=== PATIENT | female | born 1975 | race Caucasian/White ===

== ENCOUNTER 2018-03-15 09:20 | Emergency (ER) | payer OTHER ==
[~2018-03-15] VITALS: Ht 160 cm; Wt 97.1 kg
[2018-03-15 09:40] VITALS: BP 135/81
== END 2018-03-15 11:30 | disposition home or self-care (01) ==
LOC: ER 09:20
DX: S16.1XXA Strain of muscle, fascia and tendon at neck level, initial encounter (principal); S46.912A Strain of unspecified muscle, fascia and tendon at shoulder and upper arm level, left arm, initial encounter; I10 Essential (primary) hypertension; Z88.0 Allergy status to penicillin; Z88.2 Allergy status to sulfonamides; V43.52XA Car driver injured in collision with other type car in traffic accident, initial encounter; Y93.89 Activity, other specified; Y99.8 Other external cause status; Y92.410 Unspecified street and highway as the place of occurrence of the external cause
CPT/HCPCS: 70450; 72125; 73030; 74176

== ENCOUNTER 2022-06-09 19:15 | Emergency (ER) | payer OTHER ==
[~2022-06-09] VITALS: Ht 160 cm; Wt 103.0 kg
[2022-06-09 19:30] VITALS: BP 166/100
[2022-06-09 20:40] LABS: Alanine Aminotransferase 24 U/L (13-56); Albumin 3.3 g/dL (3.4-5.0); Amylase 24 U/L (25-115); Anion Gap 8 (5-15); Aspartate Aminotransferase 16 U/L (15-37); BUN/Creatinine Ratio 21.9; Blood Urea Nitrogen 14 mg/dL (7-18); Calcium 8.8 mg/dL (8.5-10.1); Carbon Dioxide 26 mmol/L (21-32); Chloride 104 mmol/L (98-107); GFR African American 129 mL/min; GFR Non-African American 107 mL/min; Glucose 88 mg/dL (74-106); Lipase 141 U/L (73-393); Potassium 3.3 mmol/L (3.5-5.1); Sodium 138 mmol/L (136-145)
[2022-06-09 20:43] LABS: Alkaline Phosphatase 100 U/L (45-117); Bilirubin, Total 0.2 mg/dL (0.2-1.0); Total Protein 7.4 g/dL (6.4-8.2)
[2022-06-09 20:49] LABS: Basophils # (auto) 0.1 10 ^3/uL (0-0.2); Basophils % (auto) 0.8 % (0.0-2.0); Eosinophils # (auto) 0.1 10 ^3/uL (0-0.8); Eosinophils % (auto) 0.8 % (0.0-7.0); Hematocrit 40.9 % (36.0-46.0); Hemoglobin 13.9 g/dL (12.2-16.2); Lymphocytes # (auto) 1.9 10 ^3/uL (0.4-5.4); Mean Corpuscular Hemoglobin 29.6 pg (28.0-32.0); Mean Corpuscular Hgb Conc. 33.9 g/dL (32.0-36.0); Mean Corpuscular Volume 87.3 fL (80.0-100.0); Monocytes # (auto) 0.7 10 ^3/uL (0-1.3); Monocytes % (auto) 6.4 % (0.0-12.0); Neutrophils # (auto) 7.6 10 ^3/uL (1.6-8.6); Nucleated Red Blood Cells % 0.1 %; Red Blood Cells 4.69 10^6/uL (4.0-5.20); White Blood Cell 10.3 10^3/uL (4.4-10.8)
[2022-06-09] MEDS ORDERED: HYDROcodone-ACET 5/325MG TAB PO ONE (21:15)
[2022-06-09] MEDS ORDERED: MAALOX PLUS or MAALOX 30 ML PO ONE (21:15)
[2022-06-09 22:00] LABS: Urine Bacteria NONE SEEN /hpf (None Seen); Urine Blood TRACE /uL (Negative); Urine Mucus FEW (None Seen); Urine Specific Gravity 1.016 (1.001-1.035); Urine WBC 3 /hpf (0 - 5)
== END 2022-06-10 01:10 | disposition home or self-care (01) ==
LOC: ER 19:15
DX: R16.0 Hepatomegaly, not elsewhere classified (principal); R10.2 Pelvic and perineal pain; R10.33 Periumbilical pain; N83.202 Unspecified ovarian cyst, left side; N28.1 Cyst of kidney, acquired; Z88.0 Allergy status to penicillin; Z88.2 Allergy status to sulfonamides; I10 Essential (primary) hypertension
CPT/HCPCS: 36415; 74176; 80053; 81001; 82150; 83605; 83690; 84484; 84702; 85025; 93005

== ENCOUNTER 2024-09-22 01:53 | Emergency (ER) | payer OTHER ==
[~2024-09-22] VITALS: Ht 160 cm; Wt 85.9 kg
--- NOTE | 2024-09-22 02:19 | ED.PDOC ---
History of Present Illness HPI Comments 49-year-old female came to ER for weakness. Patient states she woke up from her sleep with abdominal pain. She went to the bathroom, however she felt like she was about to pass out, so she laid on the floor while she called out to her for help. She started shaking uncontrollably, she felt numb and started having shortness of breath. No fever, nausea or vomiting noted. 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: Denies all [employer]IANS Hx Family History Family History: Unknown Social History Smoker: Non-Smoker Alcohol: Denies ETOH Use Drugs: Denies Drug Use Lives In: Home Constitutional: denies: chills, diaphoresis, fatigue, fever, malaise, sweats, weakness, others EENTM: denies: blurred vision, double vision, ear bleeding, ear discharge, ear drainage, ear pain, ear ringing, eye pain, eye redness, hearing loss, mouth pain, mouth swelling, nasal discharge, nose bleeding, nose congestion, nose pain, photophobia, tearing, throat pain, throat swelling, voice changes, others Respiratory: reports: shortness of breath; denies: cough, hemoptysis, orthopnea, SOB at rest, SOB with excertion, stridor, wheezing, others Cardiovascular: denies: chest pain, dizzy spells, diaphoresis, Dyspnea on exertion, edema, irregular heart beat, left arm pain, lightheadedness, palpitations, PND, syncope, others Gastrointestinal: reports: abdominal pain; denies: abdomen distended, blood streaked bowels, constipated, diarrhea, dysphagia, difficulty swallowing, hematemesis, melena, nausea, poor appetite, poor fluid intake, rectal bleeding, rectal pain, vomiting, others Genitourinary: denies: abnormal vagina bleeding, burning, dyspareunia, dysuria, flank pain, frequency, hematuria, incontinence, pain, , vagina discharge, urgency, others Neurological: reports: fainting, numbness, tremors; denies: dizziness, headache, left sided numbness, left sided weakness, paresthesia, pre-existing deficit, right sided numbness, right sided weakness, seizure, speech problems, tingling, weakness, others Musculoskeletal: denies: back pain, gout, joint pain, joint swelling, muscle pain, muscle stiffness, neck pain, others Integumetry: denies: bruises, change in color, change in hair/nails, dryness, laceration, lesions, lumps, rash, wounds, others Allergic/Immunocompromised: denies: Difficulty Healing, Frequent Infections, Hives, Itching, others Hematologic/Lymphatic: denies: anemia, blood clots, easy bleeding, easy bruising, swollen glands, others Endocrine: denies: excessive hunger, excessive sweating, excessive thirst, excessive urination, flushing, intolerance to cold, intolerance to heat, unexplained weight gain, unexplained weight loss, others Psychiatric: denies: anxiety, bipolar disorder, depression, hopeless, panic disorder, schizophrenia, sleepless, suicidal, others Physical Exam General Appearance: Moderate Distress, Normal HEENT: Normal ENT Inspection, Pharynx Normal, TMs Normal Neck: Full Range of Motion, Non-Tender, Normal, Normal Inspection Respiratory: Chest Non-Tender, Lungs Clear, No Accessory Muscle Use, No Respiratory Distress, Normal Breath Sounds Cardiovascular: No Edema, No JVD, No Murmur, No Gallop, Normal Peripheral Pulses, Regular Rate/Rhythm Breast Exam: Deferred Gastrointestinal: No Organomegaly, Non Tender, No Pulsatile Mass, Normal Bowel Sounds, Soft Genitalia: Deferred Pelvic: Deferred Rectal: Deferred Extremities: No calf tenderness, Normal capillary refill, Normal inspection, Normal range of motion, Non-tender, No pedal edema Musculoskeletal : Apperance: Normal Neurologic: Alert, web design intern II-XII nml as Tested, No Motor Deficits, Normal Affect, Normal Mood, No Sensory Deficits Cerebellar Function: NOT DONE Reflexes: NOT DONE Skin: Dry, Normal Color, Warm Peripheral Pulses: 3+ Radial (R), 3+ Radial (L) Lymphatic: No Adenopathy Was a procedure done? Was a procedure done?: No Differential Dx Considerations may include: Anemia, electrolyte imbalance, UTI, near syncope X-Ray, Labs, Meds, VS Vital Signs Date Time Temp Pulse Resp B/P (MAP) Pulse Ox O2 Delivery O2 Flow Rate FiO2 09/22/24 07:25 99.1 93 17 137/87 (104) 99 99.1 09/22/24 07:25 93 17 99 Room Air* 0 09/22/24 06:56 99.0 105 18 134/79 (97) 99 99.0 09/22/24 03:30 108 18 99 Room Air* 0 09/22/24 03:30 98.7 108 18 125/90 (102) 99 98.7 09/22/24 02:24 88 09/22/24 02:10 98.1 113 22 113/80 (91) 98 98.1 Lab Test 09/22/24 03:40 09/22/24 02:19 09/22/24 02:16 09/22/24 02:12 Range/Units Troponin I High Sensitivity < 3 L < 3 L </=34 ng/L White Blood Count 10.4 4.4-10.8 10^3/uL Red Blood Count 5.07 4.0-5.20 10^6/uL Hemoglobin 15.2 12.2-16.2 g/dL Hematocrit 44.1 36.0-46.0 % Mean Corpuscular Volume 87.1 80.0-100.0 fL Mean Corpuscular Hemoglobin 30.0 28.0-32.0 pg Mean Corpuscular Hemoglobin Concent 34.5 32.0-36.0 g/dL Red Cell Distribution Width 13.6 11.8-14.3 % Platelet Count 328 140-450 10^3/uL Mean Platelet Volume 7.4 6.9-10.8 fL Neutrophils (%) (Auto) 62.4 37.0-80.0 % Lymphocytes (%) (Auto) 29.4 10.0-50.0 % Monocytes (%) (Auto) 6.8 0.0-12.0 % Eosinophils (%) (Auto) 0.9 0.0-7.0 % Basophils (%) (Auto) 0.5 0.0-2.0 % Neutrophils # (Auto) 6.5 1.6-8.6 10 ^3/uL Lymphocytes # (Auto) 3.1 0.4-5.4 10 ^3/uL Monocytes # (Auto) 0.7 0-1.3 10 ^3/uL Eosinophils # (Auto) 0.1 0-0.8 10 ^3/uL Basophils # (Auto) 0.1 0-0.2 10 ^3/uL Nucleated Red Blood Cells 0.1 % Sodium Level 140 136-145 mmol/L Potassium Level 2.8 L 3.5-5.1 mmol/L Chloride Level 103 98-107 mmol/L Carbon Dioxide Level 23 20-31 mmol/L Anion Gap 14 5-15 Blood Urea Nitrogen 13 9-23 mg/dL Creatinine 0.83 0.550-1.02 mg/dL Glomerular Filtration Rate Calc 87 >90 mL/min BUN/Creatinine Ratio 15.7 10.0-20.0 Serum Glucose 115 H 74-106 mg/dL Calcium Level 10.0 8.7-10.4 mg/dL Urine Color Light-yellow Yellow Urine Clarity Clear Clear Urine pH 6.5 5.0-9.0 Urine Specific [place] 1.018 1.001-1.035 Urine Protein Trace H Negative Urine Ketones Negative Negative Urine Blood Negative Negative /uL Urine Nitrite Negative Negative Urine Bilirubin Negative Negative Urine Urobilinogen Normal Negative mg/dL Urine Leukocyte Esterase 2+ Negative /uL Urine RBC 2 0 - 4 /hpf Urine Microscopic WBC 1 0-5 /HPF Urine Squamous Epithelial Cells Few <5 /hpf Urine Bacteria Few H None Seen /hpf Urine Mucus Few None Seen Urine Glucose Normal Normal mg/dL POC Glucose 101 70-106 mg/dl Current Medications Medications (Trade) Dose Ordered Sig/[place] Route Start Time Stop Time Status Last Admin Sodium Chloride 1,000 ml @ 1,000 mls/hr Q1H ONCE IV 09/22/24 02:15 09/22/24 03:14 DC 09/22/24 03:34 Ondansetron HCl (Zofran) 4 mg ONCE ONCE IV 09/22/24 02:15 09/22/24 02:16 DC 09/22/24 03:48 Famotidine (Pepcid Injection) 20 mg ONCE ONCE IV 09/22/24 02:15 09/22/24 02:16 DC 09/22/24 03:48 Potassium Chloride (Klor-Con Tablet) 40 meq ONCE ONCE PO 09/22/24 04:00 09/22/24 04:04 DC 09/22/24 05:11 Sodium Chloride 1,000 ml @ 1,000 mls/hr Q1H ONCE IV 09/22/24 04:45 09/22/24 05:44 DC 09/22/24 04:58 Ondansetron HCl (Zofran) 4 mg ONCE ONCE IV 09/22/24 04:45 09/22/24 04:46 DC 09/22/24 04:57 CHEST RADIOGRAPH Indication: palpitations Technique: Single frontal view of the chest was obtained COMPARISON: None FINDINGS: Lines and Tubes: None Lungs: Clear Pleura: No effusion. No pneumothorax. Cardiomediastinal contours: Unremarkable Bones: Unremarkable IMPRESSION: 1. No acute disease. Patient alert. Complaining of abdominal pain. Vitals stable. Answering questions. Spoke with Hernandez. Chest x-ray reviewed does not show any acute changes. Establish intravenous access. Was given fluids. Was given Zofran. Reviewed her history. Explained to the patient. Continue monitoring. Time of 1ST Reevaluation: 02:14 Reevaluation 1ST: Unchanged Time of 2ND Reevaluation: 07:24 Reevaluation 2ND: Improved Patient Education/Counseling: Diagnosis, Treatment Family Education/Counseling: Diagnosis, Treatment Departure 1 Departure Time of Disposition: 07:25 Impression: Primary Impression: Acute abdominal pain Additional Impressions: Urinary tract infection Qualified Codes: N30.00 - Acute cystitis without hematuria Colitis Disposition: ADMITTED INPATIENT Admit to: Med Surg Condition: Guarded e-Prescriptions Levofloxacin Hemihydrate (LEVOFLOXACIN) 500 Mg Tab 1 TAB PO DAILY for 7 Days, #7 TAB Prov: DANITA LÓPEZ MD 09/22/24 Critical Care Note Critical Care Time?: No Stability Stability form required: No Heart Score Heart Score: Heart Score Response (Comments) Value History N/A 0 EKG N/A 0 Age N/A 0 Risk Factors N/A 0 Troponin N/A 0 Total 0 I personally scribed for LAYNE BLAKE MD ([email or web address]) on 09/22/24 at 02:19. Electronically submitted by Yusef Joya ([email or web address]). I personally scribed for LAYNE BLAKE MD ([email or web address]) on 09/22/24 at 05:21. Elec tronically submitted by Yusef Joya ([email or web address]). LAYNE BLAKE MD Sep 22, 2024 02:19 DANITA LÓPEZ MD Sep 22, 2024 07:26
[2024-09-22 02:46] LABS: Chloride 103 mmol/L (98-107); Sodium 140 mmol/L (136-145)
[2024-09-22 02:47] LABS: Anion Gap 14 (5-15); Carbon Dioxide 23 mmol/L (20-31)
[2024-09-22 02:50] LABS: Basophils # (auto) 0.1 10 ^3/uL (0-0.2); Basophils % (auto) 0.5 % (0.0-2.0); Eosinophils # (auto) 0.1 10 ^3/uL (0-0.8); Eosinophils % (auto) 0.9 % (0.0-7.0); Hematocrit 44.1 % (36.0-46.0); Hemoglobin 15.2 g/dL (12.2-16.2); Lymphocytes # (auto) 3.1 10 ^3/uL (0.4-5.4); Lymphocytes % (auto) 29.4 % (10.0-50.0); Mean Corpuscular Hgb Conc. 34.5 g/dL (32.0-36.0); Mean Corpuscular Volume 87.1 fL (80.0-100.0); Monocytes # (auto) 0.7 10 ^3/uL (0-1.3); Monocytes % (auto) 6.8 % (0.0-12.0); Neutrophils # (auto) 6.5 10 ^3/uL (1.6-8.6); Neutrophils % (auto) 62.4 % (37.0-80.0); Nucleated Red Blood Cells % 0.1 %; Platelet Count (auto) 328 10^3/uL (140-450); Red Blood Cells 5.07 10^6/uL (4.0-5.20); Red Cell Distribution Width 13.6 % (11.8-14.3); White Blood Cell 10.4 10^3/uL (4.4-10.8)
[2024-09-22 02:52] LABS: BUN/Creatinine Ratio 15.7 (10.0-20.0); Blood Urea Nitrogen 13 mg/dL (9-23)
[2024-09-22 02:53] LABS: Glucose 115 mg/dL (74-106); Potassium 2.8 mmol/L (3.5-5.1)
[2024-09-22 03:30] VITALS: PULSE 108; RESP 18; O2SAT 99
[2024-09-22] MEDS: SODIUM CHLORIDE 0.9% 1,000 ML IV ONE ×2 (03:34→04:58)
[2024-09-22] MEDS: FAMOTIDINE (10MG/ML) 2ML VL IV ONE (03:48)
[2024-09-22] MEDS: ONDANSETRON HCL 4 MG/2 ML VIAL IV ONE ×2 (03:48→04:57)
--- NOTE | 2024-09-22 04:23 | ECG ---
[facility] Test Date: 2024-09-22 Test Time: 02:24:33 Pat Name: RADHA PALACIOS Department: ER Room: Gender: F [employer]: ANTHONY : 1975 Requested By: LAYNE BLAKE Order Number: [id number] Reading MD: Measurements Intervals [place] Rate: 88 P: 43 MD: 162 QRS: 39 QRSD: 106 T: 10 QT: 400 QTc: 484 Interpretive Statements Sinus rhythm Baseline wander in lead(s) V1 Please click the below link to view image of tracing.
--- NOTE | 2024-09-22 05:06 | DVH ---
CHEST RADIOGRAPH Indication: palpitations Technique: Single frontal view of the chest was obtained COMPARISON: None FINDINGS: Lines and Tubes: None Lungs: Clear Pleura: No effusion. No pneumothorax. Cardiomediastinal contours: Unremarkable Bones: Unremarkable IMPRESSION: 1. No acute disease.
[2024-09-22 05:07] LABS: Urine Bacteria FEW /hpf (None Seen); Urine Blood Negative /uL (Negative); Urine Clarity Clear (Clear); Urine Color Light-Yellow (Yellow); Urine Mucus FEW (None Seen); Urine Protein, UAD TRACE (Negative); Urine Specific Gravity 1.018 (1.001-1.035); Urine Squamous Epithelial Cell FEW /hpf (<5); Urine Urobilinogen Normal (Negative); Urine WBC 1 /HPF (0-5); Urine pH 6.5 (5.0-9.0)
[2024-09-22] MEDS: POTASSIUM CHL 20 Meq TABLET PO ONE (05:11)
[2024-09-22] MEDS: IOHEXOL 300 MG/ML 100ML BOTTLE IJ ONE (06:51)
--- NOTE | 2024-09-22 07:21 | DVH ---
Procedure: CT CT AB PEL WITH IV CON ONLY 09/22/2024 06:04 AM Indication: abdominal pain Comparison Study: CT scan dated 06/09/2024 Technique: Axial images were obtained and reformatted in coronal and sagittal planes. All CT scans at this medical facility are performed using dose modulation techniques as appropriate to a performed e xam including the following: Automated exposure control was utilized; adjustment of the MA and/or KV according to patient size; and use of iterative reconstruction technique. CT Dose: CTDI volume is 17. 25 mGy. Dose-length product is 946.64 mGy*cm FINDINGS: Lower Chest: Unremarkable. Hepatobiliary: Moderate hepatomegaly, 19 cm in craniocaudal. Spleen: Unremarkable. Pancreas: Unremarkable. Adrenal Glands: Unremarkable. tract: The kidneys are normal in size bilaterally without hydronephrosis or nephrolithiasis. A 6.5 cm simple appearing, Bosniak category 1 cyst seen in the lower pole of the right kidney. The urinary bladder is unremarkable. GI tract: The stomach is grossly normal in appearance. No evidence of small bowel obstruction. Mild c ircumferential mural thickening of the descending and sigmoid colon without significant pericolonic i nflammation could be at least in part due to lack of distention. The appendix is not visualized. No i nflammatory change is noted in the right lower quadrant. Lymphatics: No mesenteric, retroperitoneal or periportal lymphadenopathy. Vasculature: The abdominal aorta is normal in caliber. Pelvic Organs: Unremarkable Bones/soft tissues: Anteverted uterus. No adnexal lesion Other: None. IMPRESSION: 1. Mild circumferential mural thickening of the descending and sigmoid colon noted could be at least in part due to lack of distention. Colitis can not be ruled out. Recommend clinical and biochemical correlation. 2. Small amount of free fluid in cul-de-sac, likely physiologic.
[2024-09-22 07:25] VITALS: BP 137/87; PULSE 93; RESP 17; TEMP 99.1; O2SAT 99
[2024-09-22] MEDS ORDERED: LEVO500T91 PO (07:52)
[2024-09-22] MEDS: levoFLOXacin 500MG 100 ML IV ONE (07:53)
== END 2024-09-22 08:37 | disposition left against medical advice (07) ==
LOC: ER 01:53
DX: K52.9 Noninfective gastroenteritis and colitis, unspecified (principal); N30.00 Acute cystitis without hematuria; I10 Essential (primary) hypertension; Z88.0 Allergy status to penicillin; Z88.2 Allergy status to sulfonamides
CPT/HCPCS: 36415; 71045; 74177; 80048; 81001; 82962; 84484; 85025; 93005; 96361; 96365; 96375; 96376; 99285; J1956; J2405; J3490; J7030; Q9967